=== PATIENT | female | born 1945 ===

== ENCOUNTER 2021-10-31 12:11 | Emergency (ER) | payer OTHER ==
[~2021-10-31] VITALS: Ht 180.3 cm; Wt 73.5 kg
[~2021-10-31 12:11] MED LIST: DIOVAN160 M1; LEXAPRO20 MG; METFORMIN HCL1000 M1; SINGULAIR 4MG4 MG; XANAX1 MG
[2021-10-31] MEDS ORDERED: AMLODIPINE BESYL5 MG PO (12:55)
[2021-10-31] MEDS ORDERED: PANTOPRAZOLE SO40 MG PO (12:55)
[2021-10-31] MEDS ORDERED: GLIMEPIRIDE2 M1 PO (12:55)
[2021-10-31] MEDS ORDERED: KETO10TA2 PO (16:39)
== END 2021-10-31 16:39 | disposition home or self-care (01) ==
LOC: ER 12:11
DX: S49.92XA Unspecified injury of left shoulder and upper arm, initial encounter (principal); W19.XXXA Unspecified fall, initial encounter; Y93.9 Activity, unspecified; Y92.9 Unspecified place or not applicable; S42.252A Displaced fracture of greater tuberosity of left humerus, initial encounter for closed fracture